=== PATIENT | male | born 1970 | race Caucasian/White ===

== ENCOUNTER 2017-02-18 18:40 | Emergency (ER) | payer OTHER ==
[~2017-02-18] VITALS: Ht 182.9 cm; Wt 80.0 kg
[2017-02-18 18:48] VITALS: BP 145/89; PULSE 64; RESP 20; TEMP 98; O2SAT 99
[2017-02-18] MEDS ORDERED: SODIUM CHLOR 0.9% 1000 ML INJ 1,000 ML IV SCH (18:52)
[2017-02-18] MEDS ORDERED: ONDANSETRON HCL 4 MG/2 ML VIAL IVP ONE (19:00)
[2017-02-18] MEDS ORDERED: SODIUM CHLORIDE 0.9% FLUSH 10 ML FLUSH IVF PRN (19:00)
[2017-02-18] MEDS ORDERED: MORPHINE SULFATE 4 MG/ML INJ IV ONE (19:00)
--- NOTE | 2017-02-18 19:11 | PD ---
HPI Chief Complaint: Fall Time Seen by Provider: 18:51 Travel History International Travel<30 days: No Contact w/Intl Traveler<30days: No Traveled to known affect area: No History of Present Illness HPI Just prior to ER arrival the patient fell 6 down six concrete stairs. He was able to help him self to his feet using the handrail and walked up the stairs to his condo. He had severe pain the in the R flank, constant and worse with palpation. Due to pain severity he called EMS. He denies loss consciousness head trauma numbness and weakness. EMS reports normal vital signs on scene. In the ER the patient complains of persistent pain primarily in the right flank. The pain was worse and we rolled him off of his hard back board. PFSH Past Medical History Medical History: Denies Significant Hx Social History Alcohol Use: Yes Tobacco Use: No Substance Use: No Allergies-Medications (Allergen,Severity, Reaction): Coded Allergies: No Known Allergies (Unverified , 02/18/17) Reported Meds & Prescriptions Reported Meds & Active Scripts Active Percocet (Oxycodone-Acetaminophen) 5-325 mg Tab 1-2 Tab PO Q6H PRN Review of Systems Except as stated in HPI: all other systems reviewed are Neg General / Constitutional: No: Fever Physical Exam Narrative GENERAL: 46-year-old male well-nourished well-developed mild distress secondary to pain SKIN: Focused skin assessment warm/dry. HEAD: Atraumatic. Normocephalic. EYES: Pupils equal and round. No scleral icterus. No injection or drainage. ENT: No nasal bleeding or discharge. Mucous membranes pink and moist. NECK: Trachea midline. No JVD. No focal c-spine tenderness. Normal ROM of the neck. CARDIOVASCULAR: Regular rate and rhythm. No murmur appreciated. RESPIRATORY: No accessory muscle use. Clear to auscultation. Breath sounds equal bilaterally. GASTROINTESTINAL: Soft. No focal tenderness anteriorly. There is tenderness palpation along the lower right thorax/region of the right flank. MUSCULOSKELETAL: No obvious deformities. No clubbing. No cyanosis. No edema. NEUROLOGICAL: Awake and alert. No obvious cranial nerve deficits. Motor grossly within normal limits. Normal speech. PSYCHIATRIC: Appropriate mood and affect; insight and judgment normal. Data Data Last Documented VS Vital Signs Date Time Temp Pulse Resp B/P Pulse Ox O2 Delivery O2 Flow Rate FiO2 7/27/17 18:48 98.0 64 20 145/89 99 VS reviewed Orders Basic Metabolic Panel (Bmp) (02/18/17 18:52) Complete Blood Count With Diff (02/18/17 18:52) Alcohol (Ethanol) (02/18/17 18:52) Urinalysis - C+S If Indicated (02/18/17 18:52) Chest, Single Ap (02/18/17 18:52) Ct Abd/Pel W Iv Contrast(Rout) (02/18/17 18:52) Ct Thorax/ Chest W Iv Contrast (02/18/17 18:52) Remove Cervical Collar (02/18/17 18:52) Iv Access Insert/Monitor (02/18/17 18:52) Ecg Monitoring (02/18/17 18:52) Oximetry (02/18/17 18:52) Oxygen Administration (02/18/17 18:52) Morphine Inj (Morphine Inj) (02/18/17 19:00) Ondansetron Inj (Zofran Inj) (02/18/17 19:00) Sodium Chlor 0.9% 1000 Ml Inj (Ns 1000 M (02/18/17 18:52) Sodium Chloride 0.9% Flush (Ns Flush) (02/18/17 19:00) Drug Screen, Random Urine (02/18/17 18:52) Morphine Inj (Morphine Inj) (02/18/17 20:15) Iohexol 350 Inj (Omnipaque 350 Inj) (02/18/17 21:47) Resp Incentive Spirometry (02/18/17 ) Hydromorphone Pf Inj (Dilaudid Pf Inj) (02/18/17 22:45) Labs Laboratory Tests Test 02/18/17 02/18/17 19:08 20:50 White Blood Count 6.4 TH/MM3 Red Blood Count 4.75 MIL/MM3 Hemoglobin 15.6 GM/DL Hematocrit 43.4 % Mean Corpuscular Volume 91.3 FL Mean Corpuscular Hemoglobin 32.9 PG Mean Corpuscular Hemoglobin 36.0 % Concent Red Cell Distribution Width 12.3 % Platelet Count 155 TH/MM3 Mean Platelet Volume 9.3 FL Neutrophils (%) (Auto) 49.6 % Lymphocytes (%) (Auto) 36.1 % Monocytes (%) (Auto) 13.2 % Eosinophils (%) (Auto) 0.5 % Basophils (%) (Auto) 0.6 % Neutrophils # (Auto) 3.2 TH/MM3 Lymphocytes # (Auto) 2.3 TH/MM3 Monocytes # (Auto) 0.8 TH/MM3 Eosinophils # (Auto) 0.0 TH/MM3 Basophils # (Auto) 0.0 TH/MM3 CBC Comment AUTO DIFF Differential Comment AUTO DIFF CONFIRMED Sodium Level 138 MEQ/L Potassium Level 3.6 MEQ/L Chloride Level 103 MEQ/L Carbon Dioxide Level 25.9 MEQ/L Anion Gap 9 MEQ/L Blood Urea Nitrogen 15 MG/DL Creatinine 0.96 MG/DL Estimat Glomerular Filtration 84 ML/MIN Rate Random Glucose 89 MG/DL Calcium Level 9.1 MG/DL Ethyl Alcohol Level 68 MG/DL Urine Color YELLOW Urine Turbidity CLEAR Urine pH 6.0 Urine Specific [place] 1.020 Urine Protein NEG mg/dL Urine Glucose (UA) NEG mg/dL Urine Ketones NEG mg/dL Urine Occult Blood NEG Urine Nitrite NEG Urine Bilirubin NEG Urine Urobilinogen LESS THAN 2.0 MG/DL Urine Leukocyte Esterase NEG Urine WBC 1 /hpf Microscopic Urinalysis Comment CULT NOT INDICATED MDM Medical Decision Making Medical Screen Exam Complete: Yes Emergency Medical Condition: Yes Medical Record Reviewed: Yes Differential Diagnosis Rib fracture, hemothorax, liver injury, kidney injury, pneumothorax Narrative Course CBC & BMP Diagram 02/18/17 19:08 Last 24 hours Impressions Chest X-Ray 02/18/171851 Signed Impressions: Service Date/Time: January 19:02 - CONCLUSION: No acute disease. Andreas Cheek MD Chest CT 02/18/171851 Signed Impressions: Service Date/Time: January 21:40 - CONCLUSION: 1. Fractures of the right ninth and 10th posterior ribs with dependent atelectasis in both lungs. No pneumothorax or effusion. Cardiomegaly. Andreas Cheek MD Abdomen/Pelvis CT 02/18/171851 Signed Impressions: Service Date/Time: January 21:40 - CONCLUSION: 1. No acute findings within the abdomen or pelvis. Andreas Cheek MD The patient is resting comfortably and feels better, is alert and in no distress. The patients results and examination findings were discussed. The repeat examination is unremarkable and benign. The history, exam, diagnostic testing, and current condition do not suggest any significant pathology to warrant further testing, continued ED treatment, admission, or surgical evaluation at this point. The vital signs have been stable. The patient does not have uncontrollable pain, intractable vomiting, or other significant symptoms. The patient's condition is stable and appropriate for discharge. The patient will pursue further outpatient evaluation with a primary care physician or other designated or consulting physician as indicated in the discharge instructions. The patient expressed understanding and was agreeable with this plan. Diagnosis Primary Impression: Ribs, multiple fractures Qualified Code: S22.41XA - Closed fracture of multiple ribs of right side, initial encounter Additional Impression: Fall Qualified Code: W19.XXXA - Fall, initial encounter Referrals: Primary Care Physician 2 days Additional Instructions: RETURN TO THE ER IMMEDIATELY IF YOU DEVELOP SUDDEN ONSET SHORTNESS OF BREATH OR IF THERE IS A SUDDEN WORSENING OF PAIN. You have a choice when it comes to health care, and we are glad that you chose [facility]. Hopefully, we have met your expectations on today's visit. You are welcome to return to [facility] at any time, as we are committed to meeting the health care needs of our community. Med/Other Pt SpecificInfo: Prescription(s) given Scripts Oxycodone-Acetaminophen (Percocet)5-325 mg Tab1-2 Tab PO Q6H PRN (PAIN SCALE 6 TO 10) #20 TAB Ref 0 Prov:Tino Gray MD 02/18/17 Disposition: 01 DISCHARGE HOME Condition: Stable Tino Gray MD Feb 18, 2017 19:11
[2017-02-18 19:51] LABS: AUTOMATED NEUTROPHIL # 3.2 TH/MM3 (1.8-7.7); BASOPHIL % 0.6 % (0.0-2.0); EOSINOPHIL % 0.5 % (0.0-4.0); HEMATOCRIT 43.4 % (39.0-51.0); LYMPH % 36.1 % (9.0-44.0); LYMPHOCYTE # 2.3 TH/MM3 (1.0-4.8); MEAN CELL VOLUME 91.3 FL (80.0-100.0); MEAN CORPUSCULAR HEMOGLOBIN 32.9 PG (27.0-34.0); MONO % 13.2 % (0.0-8.0); NEUT % 49.6 % (16.0-70.0); PLATELET COUNT 155 TH/MM3 (150-450); RED BLOOD COUNT 4.75 MIL/MM3 (4.50-5.90); RED CELL DISTRIBUTION WIDTH 12.3 % (11.6-17.2); WHITE BLOOD COUNT 6.4 TH/MM3 (4.0-11.0)
--- NOTE | 2017-02-18 19:56 | RADRPT ---
EXAM DATE/TIME: 02/18/2017 19:02 [facility] COMPARISON: No previous studies available for comparison. INDICATIONS : Trauma, fall, right side posterior/lateral chest pain. MEDICAL HISTORY : None. SURGICAL HISTORY : None. ENCOUNTER: Initial ACUITY: 1 day PAIN SCORE: 9/10 LOCATION: Right chest FINDINGS: A single view of the chest demonstrates the lungs to be symmetrically aerated without evidence of mas s, infiltrate or effusion. The cardiomediastinal contours are unremarkable. Osseous structures are intact. CONCLUSION: No acute disease. Andreas Cheek MD on February 18, 2017 at 19:54 Board Certified Radiologist. This report was verified electronically.
[2017-02-18 20:11] LABS: HEMO FLAGS AUTO DIFF
[2017-02-18] MEDS ORDERED: MORPHINE SULFATE 4 MG/ML INJ IV PUSH ONE (20:15)
[2017-02-18 20:39] LABS: SCAN/DIFF AUTO DIFF CONFIRMED
[2017-02-18 21:04] LABS: BICARBONATE 25.9 MEQ/L (21.0-32.0); POTASSIUM 3.6 MEQ/L (3.5-5.1)
[2017-02-18 21:26] LABS: BLOOD, URINE NEG (NEG); GLUCOSE,URINE NEG (NEG); KETONE, URINE NEG (NEG); NITRITE,URINE NEG (NEG); URINE COLOR YELLOW (YELLW/STRAW)
[2017-02-18 21:35] LABS: COMMENT (UR) CULT NOT INDICATED; CULTURE IF INDICATED CULT NOT INDICATED
[2017-02-18] MEDS ORDERED: IOHEXOL 350 MG/ML 10 ML VIAL (for RAD DIAG) IV ONE (21:47)
--- NOTE | 2017-02-18 22:11 | RADRPT ---
EXAM DATE/TIME: 02/18/2017 21:40 [facility] COMPARISON: No previous studies available for comparison. INDICATIONS : Trauma, Patient fell down stairs. IV CONTRAST: 100 cc Omnipaque 350 (iohexol) IV ; Cumulative dose for multiple exams. ORAL CONTRAST: No oral contrast ingested. RADIATION DOSE: 18.99 CTDIvol (mGy) ; Combined studies - Thorax/Abdomen/Pelvis MEDICAL HISTORY : None SURGICAL HISTORY : None. ENCOUNTER: Initial ACUITY: 1 day PAIN SCALE: 5/10 LOCATION: All quadrants. TECHNIQUE: Volumetric scanning of the abdomen and pelvis was performed. Using automated exposure control and ad justment of the mA and/or kV according to patient size, radiation dose was kept as low as reasonably achievable to obtain optimal diagnostic quality images. DICOM format image data is available electro nically for review and comparison. FINDINGS: There is dependent atelectasis at both lung bases. No significant abnormality in the liver, spleen, a drenals, kidneys or pancreas. No calcified gallstones or biliary ductal dilatation. No free fluid. No bowel obstruction. No adenopathy. No acute bony abnormality. CONCLUSION: 1. No acute findings within the abdomen or pelvis. Andreas Cheek MD on February 18, 2017 at 22:06 Board Certified Radiologist. This report was verified electronically.
--- NOTE | 2017-02-18 22:14 | RADRPT ---
EXAM DATE/TIME: 02/18/2017 21:40 [facility] COMPARISON: No previous studies available for comparison. INDICATIONS : Patient fell down stairs. Complains of right rib pain. IV CONTRAST: 100 cc Omnipaque 350 (iohexol) IV ; Cumulative dose for multiple exams. RADIATION DOSE: 18.99 CTDIvol (mGy) ; Combined studies - Thorax/Abdomen/Pelvis MEDICAL HISTORY : None SURGICAL HISTORY : None. ENCOUNTER: Initial ACUITY: 1 day PAIN SCALE: 5/10 LOCATION: chest TECHNIQUE: Volumetric scanning of the chest was performed. Using automated exposure control and adjustment of t he mA and/or kV according to patient size, radiation dose was kept as low as reasonably achievable to obtain optimal diagnostic quality images. DICOM format image data is available electronically for review and comparison. Follow-up recommendations for incidentally detected pulmonary nodules are based at a minimum on nodul e size and patient risk factors according to Fleischner Society Guidelines. FINDINGS: There are fractures of the right ninth and 10th posterior ribs. There is dependent atelectasis in bot h lungs. There is no pneumothorax. No significant pleural effusion. There is no mediastinal hematoma or evidence for traumatic aortic injury. No acute findings in the upper abdomen. CONCLUSION: 1. Fractures of the right ninth and 10th posterior ribs with dependent atelectasis in both lungs. No pneumothorax or effusion. Cardiomegaly. Andreas Cheek MD on February 18, 2017 at 22:09 Board Certified Radiologist. This report was verified electronically.
[2017-02-18] MEDS ORDERED: PERC5TAB12 PO (22:34)
[2017-02-18] MEDS ORDERED: HYDROmorphone HCL PF 1 MG/ML VIAL IV PUSH ONE (22:45)
[2017-02-19 03:22] LABS: AMPHETAMINE, URINE NEG (NEG); BARBITURATES, URINE NEG (NEG); COCAINE, URINE NEG (NEG)
== END 2017-02-18 23:48 | disposition home or self-care (01) ==
LOC: NEPD 18:40
DX: S22.41XA Multiple fractures of ribs, right side, initial encounter for closed fracture (principal); I51.7 Cardiomegaly; W10.9XXA Fall (on) (from) unspecified stairs and steps, initial encounter; Z79.899 Other long term (current) drug therapy
CPT/HCPCS: 71010; 71260; 74177; 80048; 80307; 81001; 85025; 94150; 96361; 96374; 96375; 96376; 99285; J1170; J2270; J2405; J7030; Q9967